=== PATIENT | male | born 1970 | race Caucasian/White ===

== ENCOUNTER 2018-03-10 13:14 | Emergency (ER) | payer OTHER ==
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
[2018-03-10 15:21] LABS: CHLORIDE,CL 106 mmol/L (98-107); SODIUM,NA 141 mmol/L (136-148)
[2018-03-10] MEDS ORDERED: Albuterol/Ipratropium 3.0-0.5 MG/3 ML Neb Soln NEB ONE (15:22)
--- NOTE | 2018-03-12 11:22 | CR ---
EXAM DATE: 03/10/18 PATIENT'S AGE: 47 Patient: LISSA SUTTON Facility: [place], [place] Site . Site : [id number] Study: XRay Chest [id number] 3:18:30 PM Ordering Physician: Doctor Neely Final Report: INDICATION: Pain. Shortness of breath. TECHNIQUE: PA and lateral chest. FINDINGS: Clear lungs. Normal heart size and pulmonary vascularity. Normal included skeletal thorax. IMPRESSION: Normal two view chest. Dictated by Gurpreet Grande MD @ Mar 10 2018 3:30PM (Electronic Signature) Report Signed by Proxy. ROYAL
== END 2018-03-10 16:33 | disposition home or self-care (01) ==
LOC: MW.ED 13:14
DX: J06.9 Acute upper respiratory infection, unspecified (principal); F17.210 Nicotine dependence, cigarettes, uncomplicated; Z79.899 Other long term (current) drug therapy
CPT/HCPCS: 36415; 71046; 71046-26; 80053; 85025; 94640; 99283-25